=== PATIENT | male | born 1975 | race Caucasian/White ===

== ENCOUNTER 2017-01-09 02:18 | Emergency (ER) | payer OTHER ==
[~2017-01-09] VITALS: Ht 175.3 cm; Wt 90.5 kg
[~2017-01-09 02:18] MED LIST: IBUP-1542 PO; TRAM50TA2 PO
[2017-01-09 02:23] VITALS: Ht 175.3 cm; Wt 90.5 kg
[2017-01-09] MEDS ORDERED: PRED50TA PO (04:31)
[2017-01-09] MEDS ORDERED: ACYC800T PO (04:31)
--- NOTE | 2017-01-09 04:53 | ERA ---
ER Documentation Chief Complaint Date/Time DATE: 01/09/17 TIME: 04:49 Chief Complaint shingles like rash to forehead HPI Patient is a 41-year-old male with a chief complaint of rash. Patient has had a painful pruritic rash increasing over the past week that includes the left side of the superior part of his scalp running down near his left arm loss of the face. Patient denies any eye pain, change in vision, headache, aggravating or relieving factors or pruritus of the ocular area. Patient has no other current complaints is not taking any medications to relieve the symptoms. ROS All systems reviewed and are negative except as per history of present illness. Medications Home Meds Active Scripts Prednisone* (Prednisone*) 50 Mg Tablet, 50 MG PO DAILY for 5 Days, TAB Prov:SARKIS ERNST PA-C 01/09/17 Acyclovir* (Acyclovir*) 800 Mg Tablet, 800 MG PO 5 TIMES DAILY for 7 Days, TAB Prov:SARKIS ERNST PA-C 01/09/17 Tramadol HCl (Tramadol HCl) 50 Mg Tab, 50 MG PO Q4 Y for PAIN, #20 TAB Prov:RADHA HERNANDEZ PA-C 04/22/15 Ibuprofen* (Ibuprofen*) 600 Mg Tablet, 600 MG PO Q6 Y for PAIN, #30 TAB Prov:RAMAN MOODY PA-C 03/10/15 Allergies Allergies: Coded Allergies: No Known Allergy (Unverified , 04/22/15) PMhx/Soc Medical and Surgical Hx: pt denies Medical Hx, pt denies Surgical Hx History of Surgery: No Anesthesia Reaction: No Hx Neurological Disorder: No Hx Respiratory Disorders: No Hx Cardiac Disorders: No Hx Psychiatric Problems: No Hx Miscellaneous Medical Probl: No Hx Alcohol Use: No Hx Substance Use: No Hx Tobacco Use: No Smoking Status: Never smoker Physical Exam Vitals Vital Signs Date Time Temp Pulse Resp B/P Pulse Ox O2 Delivery O2 Flow Rate FiO2 01/09/17 02:23 98.3 91 18 157/84 100 Physical Exam Const: Otherwise well-appearing 41-year-old male Head: Atraumatic Eyes: Normal Conjunctiva. No injection. Eyes appear equal in color when comparing. EOMI bilaterally. PERRLA. ENT: Normal External Ears, Nose and Mouth. Neck: Full range of motion..~ No meningismus. Resp: Clear to auscultation bilaterally Cardio: Regular rate and rhythm, no murmurs Abd: Soft, non tender, non distended. Normal bowel sounds Skin: Raised papular/plaques rash in groups spanning from the superior part of the scalp to the lower left side near the eyelid. There is no lesions on the tip of the nose suggesting Tyler sign. There is no ocular involvement. Back: No midline or flank tenderness Ext: No cyanosis, or edema Neur: Awake and alert Psych: Normal Mood and Affect Procedures/MDM Patient is 41-year-old male with signs and symptoms that suggest varicella- zoster virus infection of the left side of the face. I do not suspect trigeminal nerve involvement with the location of the rash. There is no lesion on the tip of the nose suggesting Yoni sign no ocular involvement. At this time I very low suspicion for involvement of the eye. Eye exam was unremarkable. We will go ahead and give acyclovir 5 times a day 7 days as well as prednisone for symptomatic relief. Patient has been counseled on the effects of the infection and the possible dangers. Patient will continue taking [id number] ibuprofen and Tylenol for pain relief discomfort. I have set down and strongly advised that the patient follow-up with PCP. 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 Departure Diagnosis: Primary Impression: Herpes zoster Qualified Code: B02.9 - Herpes zoster without complication Additional Impression: Rash and other nonspecific skin eruption Condition: Stable Patient Instructions: Shingles (Herpes Zoster) Additional Instructions: Vignesh un seguimiento con sellers PCP dentro de los prximos 1-3 naranjo para sammy evaluaci n ms completa y sammy posible derivacin a un especialista. Devuelva el departamento de emergencia inmediatamente si los sntomas empeoran o cambian. Si tiene alguna pregunta con respecto a los medicamentos, consulte con sellers farmac utico o con nosotros antes de salir. Si se producen reacciones adversas mientras smitha julian medicamentos, suspenda el tratamiento y regrese inmediatamente al servicio de urgencias. [place] julian medicamentos segn las indicaciones y complete el curso completo del tratamiento. SARKIS ERNST PA-C January 09, 2017 04:53
== END 2017-01-09 04:50 | disposition home or self-care (01) ==
LOC: FTE 02:18
DX: B02.9 Zoster without complications (principal)
CPT/HCPCS: 99284

== ENCOUNTER 2018-12-01 10:55 | Emergency (ER) | payer OTHER ==
[~2018-12-01] VITALS: Wt 81.0 kg
[~2018-12-01 10:55] MED LIST changes: +ACYC800T PO; +PRED50TA PO
[2018-12-01] MEDS ORDERED: SODIUM CHLORIDE 0.9% 1L BAG IV* STA (11:21)
[2018-12-01] MEDS ORDERED: ACETAMINOPHEN 500 MG TAB PO STA (11:22)
[2018-12-01] MEDS ORDERED: IBUPROFEN 600 MG TAB PO ONE (11:30)
[2018-12-01] MEDS ORDERED: IPRATROPIUM (NEB) 0.5 MG/2.5 ML AMP NEB STA (12:40)
[2018-12-01] MEDS ORDERED: ALBUTEROL 0.083% (NEB) 2.5 MG/3 ML AMP NEB STA (12:40)
[2018-12-01] MEDS ORDERED: IBUP800T48 PO (13:42)
[2018-12-01] MEDS ORDERED: PRED20TA PO (13:42)
[2018-12-01] MEDS ORDERED: AZIT250T PO (13:42)
[2018-12-01] MEDS ORDERED: ALBU8.5H8 INH (13:42)
[2018-12-01 15:25] VITALS: BP 130/97; PULSE 93; RESP 18
--- NOTE | 2018-12-02 16:40 | ERD ---
ER Documentation Chief Complaint Chief Complaint COUGH/FEVER X 1 WEEK HPI This is a 43-year-old male with no past medical history the presents to the emergency department complaining of a productive cough and a tactile fever with shaking chills for 1 week. The patient denies any recent travel or prolonged immobilization. He does not smoke tobacco. He states he has had no sick contacts. He denies any nausea vomiting or abdominal pain. He has no chest pain or pressure that radiates to the neck arm back or jaw. He has had no recent hospitalizations. He has no shortness of breath at rest or exertion. He has not taken any antipyretics prior to arrival. ROS All systems reviewed and are negative except as per history of present illness. Medications Home Meds Active Scripts Ibuprofen* (Motrin*) 800 Mg Tab, 800 MG PO Q6H PRN for PAIN AND OR ELEVATED TEMP, #30 TAB Prov:ANDRA ROTH MD 12/01/18 Prednisone* (Prednisone*) 20 Mg Tab, 60 MG PO DAILY for 5 Days, TAB Prov:ANDRA ROTH MD 12/01/18 Azithromycin* (Zithromax*) 250 Mg Tablet, 250 MG PO .ZPACK DIRECTED, #6 TAB TAKE 500 MG (2 TABS) THE FIRST DAY THEN 250 MG (1 TAB) DAYS 2-5 Prov:ANDRA ROTH MD 12/01/18 Albuterol Sulfate* (Proair HFA*) 8.5 Gm Hfa.aer.ad, 2 PUFF INH Q4H PRN for WHEEZING AND SOB, #1 INHALER Prov:ANDRA ROTH MD 12/01/18 Prednisone* (Prednisone*) 50 Mg Tablet, 50 MG PO DAILY for 5 Days, TAB Prov:SARKIS ERNST PA-C 01/09/17 Acyclovir* (Acyclovir*) 800 Mg Tablet, 800 MG PO 5 TIMES DAILY for 7 Days, TAB Prov:SARKIS ERNST PA-C 01/09/17 Tramadol HCl (Tramadol HCl) 50 Mg Tab, 50 MG PO Q4 PRN for PAIN, #20 TAB Prov:RADHA HERNANDEZ PA-C 04/22/15 Ibuprofen* (Ibuprofen*) 600 Mg Tablet, 600 MG PO Q6 PRN for PAIN, #30 TAB Prov:RAMAN MOODY PA-C 03/10/15 Allergies Allergies: Coded Allergies: No Known Allergy (Unverified , 04/22/15) PMhx/Soc History of Surgery: No Anesthesia Reaction: No Hx Neurological Disorder: No Hx Respiratory Disorders: No Hx Cardiac Disorders: No Hx Psychiatric Problems: No Hx Miscellaneous Medical Probl: No Hx Alcohol Use: No Hx Substance Use: No Hx Tobacco Use: No Smoking Status: Never smoker Physical Exam Vitals Vital Signs Date Temp Pulse Resp B/P (MAP) Pulse Ox O2 O2 Flow FiO2 Time Delivery Rate 12/01/18 98.5 93 18 130/97 96 Room Air 15:25 (108) 12/01/18 98 2.0 28 13:19 12/01/18 98.9 93 18 142/98 98 Room Air 13:17 (113) 12/01/18 94 20 98 Nasal 2.0 13:13 Cannula 12/01/18 Nasal 2 13:03 Cannula 12/01/18 102.0 11:48 12/01/18 102.0 11:48 12/01/18 102.3 132 18 140/85 99 10:57 (103) Physical Exam Constitutional:Well-developed. Well-nourished. HEENT:Normocephalic. Atraumatic.Pupils were equal round reactive to light. Moist mucous membranes.No tonsillar exudates. Neck: No nuchal rigidity. No lymphadenopathy. No posterior cervical spine tenderness or step-offs. Respiratory: Not using accessory muscles of respiration.Lungs were clear to auscultation bilaterally. No rhonchi. No rales. Wheezing on end auscultation bilaterally Cardiovascular: Regular rate regular rhythm.No murmurs. No rubs were appreciated.S1, S2 normal. Distal pulses are palpable 2+ bilaterally. GI: Abdomen was soft. Nontender. Non Distended. No pulsatile abdominal masses or bruits. No rebound. No guarding. Bowel sounds were present and normal. Muscle skeletal: Full range of motion of both the upper and lower extremities bilaterally.Normal muscle tone.No assymetrical calf tenderness or swelling. Skin: No petechia, no purpura. No lesions on the palms or the soles of the feet. No maculopapular rash. NEURO: Patient was alert, awake, orientated x3.No facial droop. Gait observed and normal with no ataxia.Speech had regular rate and rhythm. No focal neurological deficits. Result Diagram: 12/01/18 1129 12/01/18 1129 Results 24 hrs Laboratory Tests Test 12/01/18 11:29 12/01/18 11:34 12/01/18 14:06 12/01/18 15:38 White Blood Count 8.7 10^3/ul Red Blood Count 4.52 10^6/ul Hemoglobin 12.9 g/dl Hematocrit 37.3 % Mean Corpuscular 82.5 fl Volume Mean Corpuscular 28.5 pg Hemoglobin Mean Corpuscular 34.6 g/dl Hemoglobin Concen t Red Cell 12.5 % Distribution Width Platelet Count 234 10^3/UL Mean Platelet 10.7 fl Volume Immature 0.300 % Granulocytes % Neutrophils % 85.8 % Lymphocytes % 6.0 % Monocytes % 7.7 % Eosinophils % 0.1 % Basophils % 0.1 % Nucleated Red 0.0 /100WBC Blood Cells % Immature 0.030 10^3/ul Granulocytes # Neutrophils # 7.5 10^3/ul Lymphocytes # 0.5 10^3/ul Monocytes # 0.7 10^3/ul Eosinophils # 0.0 10^3/ul Basophils # 0.0 10^3/ul Nucleated Red 0.0 10^3/ul Blood Cells # Prothrombin Time 13.5 Sec Prothrombin Time 1.1 Ratio INR International 1.02 Normalized Ratio Activated 32.0 Sec Partial Thrombopl ast Time Sodium Level 134 mmol/L Potassium Level 4.3 mmol/L Chloride Level 99 mmol/L Carbon Dioxide 24 mmol/L Level Anion Gap 11 Blood Urea 12 mg/dl Nitrogen Creatinine 1.23 mg/dl Est Glomerular > 60 mL/min Filtrat Rate mL/min Glucose Level 111 mg/dl Calcium Level 10.2 mg/dl Total Bilirubin 0.4 mg/dl Direct Bilirubin 0.00 mg/dl Indirect 0.4 mg/dl Bilirubin Aspartate Amino 35 IU/L Transf (AST/SGOT) Alanine 13 IU/L Aminotransferase (ALT/SGPT) Alkaline 111 IU/L Phosphatase Troponin I < 0.012 ng/ml Total Protein 10.3 g/dl Albumin 4.3 g/dl Globulin 6.00 g/dl Albumin/Globulin 0.71 Ratio POC Venous 0.9 mmol/L Lactate Urine Color COLLINS Urine Clarity SLIGHTLY CLOUDY Urine pH 5.0 Urine Specific 1.016 Shiro Urine Ketones NEGATIVE mg/dL Urine Nitrite NEGATIVE mg/dL Urine Bilirubin NEGATIVE mg/dL Urine NEGATIVE mg/dL Urobilinogen Urine Leukocyte NEGATIVE Marion/ul Esterase Urine Microscopic 9 /HPF RBC Urine Microscopic 6 /HPF WBC Urine Bacteria FEW /HPF Urine Mucus FEW /HPF Urine Hemoglobin 1+ mg/dL Urine Glucose NEGATIVE mg/dL Urine Total 2+ mg/dl Protein Lactic Acid Level 0.8 mmol/L Current Medications Medications Dose Sig/Rayray Start Time Status Last (Trade) Ordered Route PRN Stop Time Admin Dose Reason Admin Sodium 2,430 ml BOLUS OVER 2 12/01/18 DC 12/01/18 Chloride HOURS STAT 11:21 11:50 (NS) IV* 12/01/18 11:23 1,000 mg ONCE STAT 12/01/18 DC 12/01/18 Acetaminophen PO 11:22 11:48 (Tylenol 12/01/18 11:24 Tab) Ibuprofen 600 mg ONCE ONCE 12/01/18 DC 12/01/18 (Motrin) PO 11:30 11:48 12/01/18 11:31 Albuterol 5 mg ONCE STAT 12/01/18 DC 12/01/18 (Proventil NEB 12:40 13:12 0.083% (Neb)) 12/01/18 12:44 Ipratropium 0.5 mg ONCE STAT 12/01/18 DC 12/01/18 [place] NEB 12:40 13:12 (Atrovent 12/01/18 12:44 0.02% (Neb)) Procedures/MDM This is a 43-year-old male that presented to the emergency department febrile and Sirs criteria. The patient had IV access established by nursing staff he was placed on a cardiac care unit nurse with continuous pulse oximetry. The patient is also tachycardic when he arrived. Therefore an EKG was obtained and there is no evidence of arrhythmia. 12 Lead EKG tracing ordered and reviewed by myself showed: Sinus tachycardia 119 bpm and no arrhythmia. MO interval normal. QRS duration normal. No ST segment elevation No ST segment depression. No changes consistent with acute ischemia. The patient's lactic acid was normal and I do not feel the patient was septic. I did feel the patient likely had a viral etiology is a chest radiograph showed no evidence of pneumonia or infiltrates reviewed by myself and the patient had no leukocytosis. There is no severe electrolyte abnormalities. Urinalysis did not indicate a urinary tract infection urine culture was obtained. Observation Note: Time: 4 hours Family Hx: No Hypertension Evaluation: Multiple exams showed improving symptoms and no evidence of influenza. Patient had received nebulizer treatments and there is complete resolution of his wheezing. He also showed signs of clinical dehydration and was received 30 cc/kg bolus of normal saline. I do feel the patient be safely discharged home with a trial antibiotics pain azithromycin and low-dose steroids antipyretics and nebulizer treatments for suspected acute bronchitis. The patient was discharged home in fair condition. They were instructed to return to the emergency department at any time if there was any worsening of their condition. The patient stated they would follow up with their PCP in the next 24-48 hours to initiate a suitable medication regimen under the care of their PCP as well as to allow their PCP to monitor any drug reactions. The patient was discharged home with prescriptions after they gave informed consent to the new medication. They were also fully informed by myself on the adverse effects and adverse drug interactions in order to provide adequate safeguards to prevent possible adverse reactions to medications. Departure Diagnosis: Primary Impression: Acute bronchitis Bronchitis organism: unspecified organism Qualified Codes: J20.9 - Acute bronchitis, unspecified Condition: Fair Patient Instructions: Bronchitis With Wheezing (Adult) ANDRA ROTH MD Dec 02, 2018 16:40
== END 2018-12-01 17:57 | disposition home or self-care (01) ==
LOC: FTE 10:55 → E/R 17:57
DX: J20.9 Acute bronchitis, unspecified (principal); R07.9 Chest pain, unspecified; R50.9 Fever, unspecified
CPT/HCPCS: 36415; 71045; 80053; 81001; 83605; 84484; 85025; 85610; 85730; 87040; 87086; 87400; 93005; 94664; 99285; J7030